=== PATIENT | female | born 1955 | race Caucasian/White ===

== ENCOUNTER 2016-10-10 17:57 | Emergency (ER) | payer OTHER ==
[2016-10-10 18:13] VITALS: TEMP 98.6
[2016-10-10] MEDS ORDERED: OXYCODONE/APAP 5/325 TAB ONE (19:54)
[2016-10-10] MEDS ORDERED: OXYCODONE/APAP 5/325MG PREPACK#4 BTL TAKEHOME ONE ×2 (19:58→20:03)
[2016-10-10] MEDS ORDERED: ONDANSETRON 4MG PREPACK#2 BTL TAKEHOME ONE ×2 (19:59→20:04)
[2016-10-10] MEDS ORDERED: ONDANSETRON DISINTEGRATING 4 MG TAB ONE (19:59)
--- NOTE | 2016-10-10 20:02 | EDPHY ---
H & P HPI/ROS: Chief complaint. Shoulder injury HPI. 61-year-old female trip and fall at 5:00 p.m.. She struck her left shoulder on the sign. She heard at crunch. No head injury loss of consciousness. Denies any other injuries. Patient is right handed. Hurts to move that left shoulder. No previous injury to the left shoulder. ROS Constitutional. no fever/chills, no weakness Eyes. no problems with vision ENT. no sore throat, no nasal drainage Cardiovascular. no chest pain Respiratory. no shortness of breath, no cough Abdominal. no abdominal pain, no nausea/vomiting, no diarrhea . no problems urinating MS. Left shoulder pain Skin. no rash Lymph. no swollen glands Neuro. no headache, no dizziness, no difficulty walking or with speech Past Medical/Surgical History: Past medical history [place] thyroiditis, spinal fusion, dyslipidemia, appendectomy and , migraines, DVT with stent Social History: Nonsmoker, denies alcohol, Physical Exam: General Appearance: Alert well-developed female mild distress vital signs are stable Eyes: Pupils equal and round no pallor or injection. ENT, Mouth: Mucous membranes are moist. Respiratory: There are no retractions, lungs are clear to auscultation. Cardiovascular: Regular rate and rhythm. Gastrointestinal: Abdomen is soft and nontender, no masses, bowel sounds normal. Neurological: Awake and alert, sensory and motor exams grossly normal. Skin: Warm and dry, no rashes. Musculoskeletal: Neck is supple nontender. Extremities pain to palpation outside aspect of shoulder and proximal humerus. No obvious deformity. Increased pain with movement Psychiatric: Patient is oriented X 3, there is no agitation. Constitutional: Initial Vital Signs Temperature (C) 37 C 10/10/16 18:08 Heart Rate 80 10/10/16 18:08 Respiratory Rate 18 10/10/16 18:08 Blood Pressure 124/60 H 10/10/16 18:08 O2 Sat (%) 81 L 10/10/16 18:08 O2 Delivery Mode Room Air Allergies/Adverse Reactions: codeine [Codeine] Allergy (Verified 11/07/09 17:41) mineral oil [Mineral Oil] Allergy (Verified 09/20/10 14:14) niacin [Niacin] Allergy (Verified 11/07/09 17:41) Sulfa (Sulfonamide Antibiotics) Allergy (Verified 11/07/09 17:41) Home Medications: Medication Instructions Recorded Pravastatin Sodium 20 mg PO DAILY 09/20/10 Thyroid,Pork [[place] Thyroid] 0 mg PO DAILY 09/20/10 Excedrin Tablet (*) 10/10/16 Fish Oil 10/10/16 T3-T4 10/10/16 oxyCODONE/APAP 5/325 [Percocet 1 tab PO Q4-6PRN PRN #14 tab 10/10/16 5/325] Medical Decision Making - Diagnostics Imaging: X-ray interpreted by me shows a acute impacted fracture of the left proximal humerus minimal displacement Procedures: Patient is placed in a coaptation splint and sling.. Post splint application shows good anatomic position distal motor vascular sensitivity to be intact ED Course/Re-evaluation: On re-evaluation patient remained stable. She and I discussed imaging study results, treatment plan including criteria for return importance of follow-up further evaluation. She expresses understanding and agreement Differential Diagnosis: I considered contusion, fracture, dislocation left shoulder Departure - Departure Disposition: Home, Routine, Self-Care Clinical Impression: Closed fracture of left proximal humerus Qualifiers: Encounter type: initial encounter Fracture morphology: other fracture Condition: Good Instructions: Proximal Humerus Fracture (ED) Additional Instructions: Ice for 24 to 48 hours. Sling until see orthopedist. Percocet for pain. Return for worsening symptoms. Call orthopedist tomorrow for follow-up appointment Referrals: Hattie Santana MD [Primary Care Provider] - As per Instructions Donny Her MD [Medical Doctor] - 5-7 days, call for appt. Prescriptions: oxyCODONE/APAP 5/325 [Percocet 5/325] 1 tab PO Q4-6PRN PRN #14 tab PRN Reason: Pain, Moderate
[2016-10-10] MEDS ORDERED: ONDANSETRON DISINTEGRATING 4 MG TAB PO ONE (20:03)
[2016-10-10] MEDS ORDERED: OXYCODONE/APAP 5/325 TAB PO ONE (20:03)
[2016-10-10 20:05] VITALS: BP 128/64; PULSE 84; RESP 16; O2SAT 96
[2016-10-10] MEDS ORDERED: IBUPROFEN 600 MG TAB PO ONE (20:09)
== END 2016-10-10 20:40 | disposition home or self-care (01) ==
LOC: EDUNIT#
PROC: 2W39X1Z Immobilization of Left Upper Extremity using Splint (ICD-10-PCS; principal; 2016-10-10)
DX: S42.202A Unspecified fracture of upper end of left humerus, initial encounter for closed fracture (principal); W01.198A Fall on same level from slipping, tripping and stumbling with subsequent striking against other object, initial encounter; Y99.0 Civilian activity done for income or pay

== ENCOUNTER 2018-03-27 17:03 | Emergency (ER) | payer MEDICAID ==
[2018-03-27] MEDS ORDERED: NS 1,000 ML IV ONE (17:26)
--- NOTE | 2018-03-27 17:30 | EDPHY ---
H & P Stated Complaint: LLQ pain Time Seen by Provider: 03/27/18 17:20 HPI/ROS: CHIEF COMPLAINT: Left lower quadrant pain HISTORY OF PRESENT ILLNESS: The patient is a 62-year-old female who comes to the emergency department complaining of left lower quadrant pain that began today. No nausea vomiting or diarrhea. She is concerned about ovarian cyst or DVT. She states that she had a pelvic clot several years ago that required anticoagulation. She states however that this feels somewhat different. She has not had a fever. She has a history of appendectomy. No vaginal symptoms. She states that she did finish a course of Macrobid yesterday for diagnosis of urinary tract infection last week. She does not think that she really improved. Severity: Moderate Modifying factors: Walking causes increased pain REVIEW OF SYSTEMS: Constitutional: denies: chills, fever, recent illness, recent injury EENTM: denies: blurred vision, double vision, nose congestion Respiratory: denies: cough, shortness of breath Cardiac: denies: chest pain, irregular heart rate, lightheadedness, palpitations Gastrointestinal/Abdominal: See HPI Genitourinary: denies: dysuria, frequency, hematuria, pain Musculoskeletal: denies: joint pain, muscle pain Skin: denies: lesions, rash, jaundice, bruising Neurological: denies: headache, numbness, paresthesia, tingling, dizziness, weakness Hematologic/Lymphatic: denies: blood clots, easy bleeding, easy bruising Immunologic/allergic: denies: HIV/AIDS, transplant EXAM: GENERAL: Well-appearing, morbidly obese and in no acute distress. HEAD: Atraumatic, normocephalic. EYES: Pupils equal round and reactive to light, extraocular movements intact, sclera anicteric, conjunctiva are normal. ENT: TMs normal, nares patent, oropharynx clear without exudates. Moist mucous membranes. NECK: Normal range of motion, supple without lymphadenopathy or JVD. LUNGS: Breath sounds clear to auscultation bilaterally and equal. No wheezes rales or rhonchi. HEART: Regular rate and rhythm without murmurs, rubs or gallops. ABDOMEN: Left lower quadrant tenderness, anatomy somewhat distorted because of obesity. BACK: No CVA tenderness, no spinal tenderness, step-offs or deformities EXTREMITIES: Normal range of motion, no pitting or edema. No clubbing or cyanosis. NEUROLOGICAL: Cranial nerves II through XII grossly intact. Normal speech, normal gait. 5/5 strength, normal movement in all extremities, normal sensation , normal reflexes PSYCH: Normal mood, normal affect. SKIN: Warm, dry, normal turgor, no visible rashes or lesions. Source: Patient Exam Limitations: No limitations - Personal History Current Tetanus/Diphtheria Vaccine: Unsure Current Tetanus Diphtheria and Acellular Pertussis (TDAP): Unsure - Medical/Surgical History Hx Asthma: No Hx Chronic Respiratory Disease: No Hx Diabetes: No Hx Cardiac Disease: No Hx Renal Disease: No Hx Cirrhosis: No Hx Alcoholism: No Hx HIV/AIDS: No Hx Splenectomy or Spleen Trauma: No Other PMH: hashimotos, lumpectomy, appy, spinal fusion, , blood clots, previous L clavicle fracture, iliac stent, L arm fx - Family History Significant Family History: No pertinent family hx - Social History Smoking Status: Never smoked Alcohol Use: Sober Drug Use: None Constitutional: Initial Vital Signs Temperature (C) 37.1 C 03/27/18 17:10 Heart Rate 94 03/27/18 17:10 Respiratory Rate 16 03/27/18 17:10 Blood Pressure 121/73 H 03/27/18 17:10 O2 Sat (%) 92 03/27/18 17:10 O2 Delivery Mode Room Air Allergies/Adverse Reactions: codeine [Codeine] Allergy (Verified 03/27/18 17:09) mineral oil [Mineral Oil] Allergy (Verified 03/27/18 17:09) niacin [Niacin] Allergy (Verified 03/27/18 17:09) Sulfa (Sulfonamide Antibiotics) Allergy (Verified 03/27/18 17:09) Home Medications: Medication Instructions Recorded Pravastatin Sodium 20 mg PO DAILY 09/20/10 Excedrin Tablet (*) 10/10/16 Fish Oil 10/10/16 Ciprofloxacin [Cipro] 500 mg PO BID #14 tab 03/27/18 Levothyroxine 03/27/18 metroNIDAZOLE [Flagyl] 500 mg PO BID #20 tab 03/27/18 Medical Decision Making - Diagnostics Imaging Results: Imaging Impressions Abdomen CT 03/27/18 17:26 Impression: 1. Mild diverticulitis at the junction of the descending and sigmoid colon. Diverticulosis throughout the descending and sigmoid colon. 2. Other chronic findings, as above. Results called and discussed with Phoenix Silvestre M.D., on March 27, 2018 at 1845. Imaging: Discussed imaging studies w/ call center dispatcher Radiologist ED Course/Re-evaluation: 6:[address] p[address] we discussed the CT and lab results. Patient states Augmentin does not typically work for her. I will start her on ciprofloxacin and Flagyl. She is well appearing and I think will succeed as an outpatient. She does not wish to be admitted. She declines nausea pain medications. We discussed indications for returning. Differential Diagnosis: Partial list of the Differential diagnosis considered include but were not limited to; diverticulitis, ovarian cyst, DVT and although unlikely based on the history and physical exam, I also considered torsion, abscess, obstruction, volvulus. I discussed these differential diagnoses and the plan with the patient as well as the usual and expected course. The patient understands that the diagnosis is provisional and that in medicine we are not always correct and that further workup is often warranted. Usual and customary warnings were given. All of the patient's questions were answered. The patient was instructed to return to the emergency department should the symptoms at all worsen or return, otherwise to followup with the physician as we discussed. - Data Points Laboratory Results: Laboratory Results 03/27/18 17:25 03/27/18 17:25 03/27/1818 03/27/18 17:25 17:25 17:15 WBC 14.03 10^3/uL H 10^3/uL (3.80-9.50) RBC 4.76 10^6/uL 10^6/uL (4.18-5.33) Hgb 14.0 g/dL g/dL (12.6-16.3) Hct 42.3 % % (38.0-47.0) MCV 88.9 fL fL (81.5-99.8) MCH 29.4 pg pg (27.9-34.1) MCHC 33.1 g/dL g/dL (32.4-36.7) RDW 13.9 % % (11.5-15.2) Plt Count 365 10^3/uL 10^3/uL (150-400) MPV 9.0 fL fL (8.7-11.7) Neut % (Auto) 73.0 % % (39.3-74.2) Lymph % (Auto) 18.6 % % (15.0-45.0) [place] % (Auto) 6.3 % % (4.5-13.0) Eos % (Auto) 1.3 % % (0.6-7.6) Baso % (Auto) 0.4 % % (0.3-1.7) Nucleat RBC Rel Count 0.0 % % (0.0-0.2) Absolute Neuts (auto) 10.24 10^3/uL H 10^3/uL (1.70-6.50) Absolute Lymphs (auto) 2.61 10^3/uL 10^3/uL (1.00-3.00) Absolute Monos (auto) 0.88 10^3/uL H 10^3/uL (0.30-0.80) Absolute Eos (auto) 0.18 10^3/uL 10^3/uL (0.03-0.40) Absolute Basos (auto) 0.06 10^3/uL 10^3/uL (0.02-0.10) Absolute Nucleated RBC 0.00 10^3/uL 10^3/uL (0-0.01) Immature Gran % 0.4 % % (0.0-1.1) Immature Gran # 0.06 10^3/uL 10^3/uL (0.00-0.10) Sodium 141 mEq/L mEq/L (135-145) Potassium 4.7 mEq/L mEq/L (3.3-5.0) Chloride 106 mEq/L mEq/L (97-110) Carbon Dioxide 23 mEq/l mEq/l (22-31) Anion Gap 12 mEq/L mEq/L (8-16) BUN 18 mg/dL mg/dL (7-23) Creatinine 0.8 mg/dL mg/dL (0.6-1.0) Estimated GFR > 60 Glucose 92 mg/dL mg/dL (70-100) Calcium 9.8 mg/dL mg/dL (8.5-10.4) Total Bilirubin 0.3 mg/dL mg/dL (0.1-1.4) Conjugated Bilirubin 0.1 mg/dL mg/dL (0.0-0.5) Unconjugated Bilirubin 0.2 mg/dL mg/dL (0.0-1.1) AST 21 IU/L IU/L (14-46) ALT 36 IU/L IU/L (9-52) Alkaline Phosphatase 103 IU/L IU/L (38-126) Total Protein 7.3 g/dL g/dL (6.3-8.2) Albumin 4.3 g/dL g/dL (3.5-5.0) Lipase 183 IU/L IU/L (23-300) Urine Color Urine Appearance Urine pH Ur Specific [place] Urine Protein Urine Ketones Urine Blood Urine Nitrate Urine Bilirubin Urine Urobilinogen Ur Leukocyte Esterase Urine RBC NONE SEEN /hpf /hpf (0-3) Urine WBC 5-10 /hpf H /hpf (0-3) Ur Epithelial Cells TRACE /lpf /lpf (NONE-1+) Urine Bacteria TRACE /hpf H /hpf (NONE SEEN) Urine Mucus TRACE /lpf /lpf (NONE-1+) Urine Glucose 03/27/18 17:15 WBC RBC Hgb Hct MCV MCH MCHC RDW Plt Count MPV Neut % (Auto) Lymph % (Auto) [place] % (Auto) Eos % (Auto) Baso % (Auto) Nucleat RBC Rel Count Absolute Neuts (auto) Absolute Lymphs (auto) Absolute Monos (auto) Absolute Eos (auto) Absolute Basos (auto) Absolute Nucleated RBC Immature Gran % Immature Gran # Sodium Potassium Chloride Carbon Dioxide Anion Gap BUN Creatinine Estimated GFR Glucose Calcium Total Bilirubin Conjugated Bilirubin Unconjugated Bilirubin AST ALT Alkaline Phosphatase Total Protein Albumin Lipase Urine Color YELLOW Urine Appearance HAZY Urine pH 6.0 (5.0-7.5) Ur Specific [place] 1.020 (1.002-1.030) Urine Protein NEGATIVE (NEGATIVE) Urine Ketones NEGATIVE (NEGATIVE) Urine Blood NEGATIVE (NEGATIVE) Urine Nitrate NEGATIVE (NEGATIVE) Urine Bilirubin NEGATIVE (NEGATIVE) Urine Urobilinogen NEGATIVE EU EU (0.2-1.0) Ur Leukocyte Esterase 1+ H (NEGATIVE) Urine RBC Urine WBC Ur Epithelial Cells Urine Bacteria Urine Mucus Urine Glucose NEGATIVE (NEGATIVE) Medications Given: Discontinued Medications Ciprofloxacin (Cipro) 500 mg PO EDNOW ONE PRN Reason: Protocol Stop: 03/27/18 18:51 Last Admin: 03/27/18 18:59 Dose: 500 mg Sodium Chloride (Ns) 1,000 mls @ 0 mls/hr IV EDNOW ONE; Wide Open PRN Reason: Protocol Stop: 03/27/18 17:27 Last Admin: 03/27/18 17:37 Dose: 1,000 mls Metronidazole (Flagyl) 500 mg PO EDNOW ONE PRN Reason: Protocol Stop: 03/27/18 18:52 Last Admin: 03/27/18 18:59 Dose: 500 mg Departure - Departure Disposition: Home, Routine, Self-Care Clinical Impression: Diverticulitis large intestine Qualifiers: Diverticulitis bleeding: without bleeding Diverticulitis complication: without perforation or abscess Qualified Code(s): K57.32 - Diverticulitis of large intestine without perforation or abscess without bleeding Condition: Fair Instructions: Diverticulitis (ED) Referrals: Hattie Santana MD [Primary Care Provider] - 2-3 days, call for appt. Prescriptions: Ciprofloxacin [Cipro] 500 mg PO BID #14 tab metroNIDAZOLE [Flagyl] 500 mg PO BID #20 tab
[2018-03-27] MEDS ORDERED: IOPAMIDOL (ISOVUE-300) 100 ML BTL ONE ×2 (17:35→18:05)
[2018-03-27 17:46] LABS: PLATELET COUNT 365 10^3/uL (150-400)
[2018-03-27 18:36] VITALS: BP 132/71
[2018-03-27] MEDS ORDERED: CIPROFLOXACIN 500 MG TAB PO ONE (18:50)
[2018-03-27] MEDS ORDERED: metroNIDAZOLE 500 MG TAB PO ONE (18:51)
== END 2018-03-27 19:10 | disposition home or self-care (01) ==
DX: K57.32 Diverticulitis of large intestine without perforation or abscess without bleeding (principal); Z86.718 Personal history of other venous thrombosis and embolism; Q42.3 Congenital absence, atresia and stenosis of anus without fistula; E86.9 Volume depletion, unspecified
CPT/HCPCS: Q9967

== ENCOUNTER 2018-05-20 17:25 | Emergency (ER) | payer MEDICAID ==
[2018-05-20] MEDS ORDERED: NS 1,000 ML IV ONE (17:53)
--- NOTE | 2018-05-20 17:59 | EDPHY ---
H & P Stated Complaint: RUQ abd pain Time Seen by Provider: 05/20/18 17:46 HPI/ROS: CHIEF COMPLAINT: Right upper quadrant pain HISTORY OF PRESENT ILLNESS: The patient is a 62-year-old female who comes to the emergency department with her daughter who is in medical school complaining of right upper quadrant pain that is been present for the last 2-3 hours. She noticed it after eating chicken and rice. She has had this several times in the past and has assumed it is her gallbladder but has never been tested. I saw her several months ago for diverticulitis. She was on Augmentin and her symptoms have since resolved. No diarrhea. No vomiting. No fever. The pain does radiate to her upper back on the right. No shoulder pain. No increase with deep inspiration. No chest pain no shortness of breath. Severity: Moderate REVIEW OF SYSTEMS: Constitutional: denies: chills, fever, recent illness, recent injury EENTM: denies: blurred vision, double vision, nose congestion Respiratory: denies: cough, shortness of breath Cardiac: denies: chest pain, irregular heart rate, lightheadedness, palpitations Gastrointestinal/Abdominal: See HPI denies: diarrhea, nausea, vomiting, blood streaked stools Genitourinary: denies: dysuria, frequency, hematuria, pain Musculoskeletal: denies: joint pain, muscle pain Skin: denies: lesions, rash, jaundice, bruising Neurological: denies: headache, numbness, paresthesia, tingling, dizziness, weakness Hematologic/Lymphatic: denies: blood clots, easy bleeding, easy bruising Immunologic/allergic: denies: HIV/AIDS, transplant 10 systems reviewed and negative except as noted EXAM: GENERAL: Well-appearing, well-nourished and in no acute distress. HEAD: Atraumatic, normocephalic. EYES: Pupils equal round and reactive to light, extraocular movements intact, sclera anicteric, conjunctiva are normal. ENT: TMs normal, nares patent, oropharynx clear without exudates. Moist mucous membranes. NECK: Normal range of motion, supple without lymphadenopathy or JVD. LUNGS: Breath sounds clear to auscultation bilaterally and equal. No wheezes rales or rhonchi. HEART: Regular rate and rhythm without murmurs, rubs or gallops. ABDOMEN: Mild right upper quadrant tenderness, positive [place] sign, normoactive bowel sounds. No guarding, no rebound. No masses appreciated. BACK: No CVA tenderness, no spinal tenderness, step-offs or deformities EXTREMITIES: Normal range of motion, no pitting or edema. No clubbing or cyanosis. NEUROLOGICAL: Cranial nerves II through XII grossly intact. Normal speech, normal gait. 5/5 strength, normal movement in all extremities, normal sensation , normal reflexes PSYCH: Normal mood, normal affect. SKIN: Warm, dry, normal turgor, no visible rashes or lesions. Source: Patient Exam Limitations: No limitations - Personal History Current Tetanus/Diphtheria Vaccine: No Current Tetanus Diphtheria and Acellular Pertussis (TDAP): No - Medical/Surgical History Hx Asthma: No Hx Chronic Respiratory Disease: No Hx Diabetes: No Hx Cardiac Disease: No Hx Renal Disease: No Hx Cirrhosis: No Hx Alcoholism: No Hx HIV/AIDS: No Hx Splenectomy or Spleen Trauma: No Other PMH: hashimotos, lumpectomy, appy, spinal fusion, , blood clots, previous L clavicle fracture, iliac stent, L arm fx, diverticulitis, endometriosis, - Family History Significant Family History: No pertinent family hx - Social History Smoking Status: Never smoked Alcohol Use: Sober Drug Use: None Constitutional: Initial Vital Signs Temperature (C) 36.7 C 05/20/18 17:36 Heart Rate 59 L 05/20/18 17:36 Respiratory Rate 16 05/20/18 17:36 Blood Pressure 123/65 H 05/20/18 17:36 O2 Sat (%) 94 05/20/18 17:36 O2 Delivery Mode Room Air Allergies/Adverse Reactions: codeine [Codeine] Allergy (Verified 05/20/18 17:34) mineral oil [Mineral Oil] Allergy (Verified 05/20/18 17:34) niacin [Niacin] Allergy (Verified 05/20/18 17:34) Sulfa (Sulfonamide Antibiotics) Allergy (Verified 05/20/18 17:34) Home Medications: Medication Instructions Recorded Pravastatin Sodium 20 mg PO DAILY 09/20/10 Excedrin Tablet (*) 10/10/16 Fish Oil 10/10/16 Levothyroxine 03/27/18 Medical Decision Making - Diagnostics EKG Interpretation: An EKG obtained and was read and documented in trace view. Please see trace view for full reading and report. Sinus rhythm no acute ischemic changes, bradycardia Imaging Results: Imaging Impressions Abdomen Ultrasound 05/20/18 17:54 Impression: 1. Normal gallbladder 2. Suspect fatty infiltration of the liver. A focal lesion in the left hepatic lobe could possibly represent focal fatty sparing or a nonspecific liver lesion. It is not identified on CT of March 27, 2018 at which time the liver did not demonstrate fatty infiltration or any focal lesions. 3. Mild right caliectasis of uncertain etiology. Results discussed with Dr. Silvestre at 7:41 PM. Imaging: Discussed imaging studies w/ customer service and sales consultant Radiologist ED Course/Re-evaluation: 8:00 p.m. We discussed the lab and imaging results. Patient is reassured although somewhat frustrated that we do not have a specific diagnosis. Her symptoms have now resolved. The we discussed her liver lesion and follow-up. The she and her daughter understand agree with this plan. They do not wish to have a referral to GI because she says she fired her is and will follow up with her primary Dr. Santana. Differential Diagnosis: Partial list of the Differential diagnosis considered include but were not limited to; biliary disease, peptic ulcer disease, pancreatitis, acute coronary disease and although unlikely based on the history and physical exam, I also considered PE, pneumonia, obstruction. I discussed these differential diagnoses and the plan with the patient as well as the usual and expected course. The patient understands that the diagnosis is provisional and that in medicine we are not always correct and that further workup is often warranted. Usual and customary warnings were given. All of the patient's questions were answered. The patient was instructed to return to the emergency department should the symptoms at all worsen or return, otherwise to followup with the physician as we discussed. - Data Points Laboratory Results: Laboratory Results 05/20/18 18:18 05/20/18 18:18 05/20/18 05/20/18 05/20/18 19:27 18:18 18:18 WBC 7.62 10^3/uL 10^3/uL (3.80-9.50) RBC 4.40 10^6/uL 10^6/uL (4.18-5.33) Hgb 13.1 g/dL g/dL (12.6-16.3) Hct 40.1 % % (38.0-47.0) MCV 91.1 fL fL (81.5-99.8) MCH 29.8 pg pg (27.9-34.1) MCHC 32.7 g/dL g/dL (32.4-36.7) RDW 14.6 % % (11.5-15.2) Plt Count 264 10^3/uL 10^3/uL (150-400) MPV 9.2 fL fL (8.7-11.7) Neut % (Auto) 54.7 % % (39.3-74.2) Lymph % (Auto) 36.9 % % (15.0-45.0) [place] % (Auto) 6.0 % % (4.5-13.0) Eos % (Auto) 1.6 % % (0.6-7.6) Baso % (Auto) 0.5 % % (0.3-1.7) Nucleat RBC Rel Count 0.0 % % (0.0-0.2) Absolute Neuts (auto) 4.17 10^3/uL 10^3/uL (1.70-6.50) Absolute Lymphs (auto) 2.81 10^3/uL 10^3/uL (1.00-3.00) Absolute Monos (auto) 0.46 10^3/uL 10^3/uL (0.30-0.80) Absolute Eos (auto) 0.12 10^3/uL 10^3/uL (0.03-0.40) Absolute Basos (auto) 0.04 10^3/uL 10^3/uL (0.02-0.10) Absolute Nucleated RBC 0.00 10^3/uL 10^3/uL (0-0.01) Immature Gran % 0.3 % % (0.0-1.1) Immature Gran # 0.02 10^3/uL 10^3/uL (0.00-0.10) Sodium 137 mEq/L mEq/L (135-145) Potassium 4.6 mEq/L mEq/L (3.3-5.0) Chloride 104 mEq/L mEq/L (97-110) Carbon Dioxide 24 mEq/l mEq/l (22-31) Anion Gap 9 mEq/L mEq/L (6-14) BUN 16 mg/dL mg/dL (7-23) Creatinine 0.8 mg/dL mg/dL (0.6-1.0) Estimated GFR > 60 Glucose 89 mg/dL mg/dL (70-100) Calcium 9.2 mg/dL mg/dL (8.5-10.4) Total Bilirubin 0.4 mg/dL mg/dL (0.1-1.4) Conjugated Bilirubin 0.2 mg/dL mg/dL (0.0-0.5) Unconjugated Bilirubin 0.2 mg/dL mg/dL (0.0-1.1) AST 34 IU/L IU/L (14-46) ALT 39 IU/L IU/L (9-52) Alkaline Phosphatase 67 IU/L IU/L (38-126) Total Protein 7.0 g/dL g/dL (6.3-8.2) Albumin 4.1 g/dL g/dL (3.5-5.0) Lipase 160 IU/L IU/L (23-300) Urine Color YELLOW Urine Appearance CLEAR Urine pH 5.0 (5.0-7.5) Ur Specific [place] 1.013 (1.002-1.030) Urine Protein NEGATIVE (NEGATIVE) Urine Ketones NEGATIVE (NEGATIVE) Urine Blood NEGATIVE (NEGATIVE) Urine Nitrate NEGATIVE (NEGATIVE) Urine Bilirubin NEGATIVE (NEGATIVE) Urine Urobilinogen NEGATIVE EU EU (0.2-1.0) Ur Leukocyte Esterase NEGATIVE (NEGATIVE) Urine RBC NONE SEEN /hpf /hpf (0-3) Urine WBC 1-3 /hpf /hpf (0-3) Ur Epithelial Cells TRACE /lpf /lpf (NONE-1+) Urine Bacteria TRACE /hpf H /hpf (NONE SEEN) Urine Mucus TRACE /lpf /lpf (NONE-1+) Urine Glucose NEGATIVE (NEGATIVE) Medications Given: Discontinued Medications Sodium Chloride (Ns) 1,000 mls @ 0 mls/hr IV EDNOW ONE; Wide Open PRN Reason: Protocol Stop: 05/20/18 17:54 Last Admin: 05/20/18 18:17 Dose: 1,000 mls Departure - Departure Disposition: Home, Routine, Self-Care Clinical Impression: Abdominal pain Qualifiers: Abdominal location: right upper quadrant Qualified Code(s): R10.11 - Right upper quadrant pain Condition: Fair Instructions: Acute Abdominal Pain (ED) Additional Instructions: Follow-up with her doctor and have a repeat ultrasound in 6 months with her primary for the 1.2 cm left liver lesion and fatty liver. Referrals: Hattie Santana MD [Primary Care Provider] - 2-3 days, call for appt.
[2018-05-20 18:41] LABS: PLATELET COUNT 264 10^3/uL (150-400)
--- NOTE | 2018-05-20 19:52 | CPEKG ---
Test Reason : OPEN Blood Pressure : / mmHG Vent. Rate : 053 BPM Atrial Rate : 055 BPM P-R Int : 167 ms QRS Dur : 091 ms QT Int : 456 ms P-R-T Axes : 060 060 073 degrees QTc Int : 429 ms Sinus rhythm Borderline T abnormalities, anterior leads Confirmed by Phoenix Silvestre ([id number]) on 05/20/2018 7:51:16 PM Referred By: Confirmed By:Phoenix Silvestre
[2018-05-20 20:18] VITALS: BP 129/74
== END 2018-05-20 20:16 | disposition home or self-care (01) ==
DX: R10.11 Right upper quadrant pain (principal); K76.9 Liver disease, unspecified; Z87.19 Personal history of other diseases of the digestive system

== ENCOUNTER → 2018-05-28 | Outpatient (CLI) | payer MEDICAID | LOC: FIMAGING 08:16 | PROVIDERS: ATTEND Family Medicine | DX: R10.11 Right upper quadrant pain (principal) | CPT/HCPCS: 78227; A9537 ==

== ENCOUNTER → 2018-08-29 | Outpatient (CLI) | payer MEDICAID | LOC: FIMAGING 07:08 | PROVIDERS: ATTEND Family Medicine | DX: K76.9 Liver disease, unspecified (principal); R16.0 Hepatomegaly, not elsewhere classified ==

== ENCOUNTER → 2018-12-29 | Outpatient (CLI) | payer MEDICAID | LOC: BMCIMAGING 11:06 ==

== ENCOUNTER 2019-01-13 11:03 | Emergency (ER) | payer MEDICAID | END 2019-01-13 13:43 | disposition home or self-care (01) ==